=== PATIENT | female | born 2000 | race African-American/Black ===

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

== ENCOUNTER 2019-01-11 10:07 | Emergency (ER) | payer SELFPAY ==
[~2019-01-11] VITALS: Ht 154.9 cm; Wt 51.8 kg
[2019-01-11 10:11] VITALS: TEMP 98.9
[2019-01-11 10:51] LABS: BASO % 0.2 % (0.0-2.0); EOS # 0.1 (0.0-0.7); EOS % 0.6 % (0-4.0); GRAN # 7.4 (1.4-6.5); GRAN % 76.1 % (42.2-75.2); HEMOGLOBIN 12.3 g/dl (12.0-15.0); LYMPH # 1.6 (1.2-3.4); LYMPH % 16.4 % (20.0-51.0); MEAN CELL VOLUME 85 fl (80.0-95.0); MEAN CORPUSCULAR HEMOGLOBIN 29 pg (26.0-32.0); MEAN CORPUSCULAR HGB CONC 34 g/dl (33.0-37.0); MEAN PLATELET VOLUME 10.1 fl (7.4-10.4); MONO # 0.6 (0.1-0.6); MONO % 6.2 % (1.7-9.3); PLATELET COUNT 289 K/mm3 (130-400); RED BLOOD COUNT 4.31 M/mm3 (4.10-5.30); REDCELL DISTRIBUTION WIDTH-CV 12.9 % (11.5-14.5)
[2019-01-11 10:53] LABS: HEMATOCRIT 36.7 % (35.0-45.0)
[2019-01-11 11:53] LABS: COLLECTION METHOD CLEAN CATCH
[2019-01-11 12:21] LABS: AMORPHOUS CRYSTAL Present /uL; MUCOUS Present /lpf; PH 7 (5-8); SQUAMOUS EPITHELIAL 0-2 /hpf; URINE APPEARANCE Hazy; URINE BACTERIA None Seen /hpf; URINE BILIRUBIN Negative (NEGATIVE); URINE BLOOD Negative (NEGATIVE); URINE COLOR Yellow; URINE GLUCOSE Negative (NEGATIVE); URINE KETONE Negative (NEGATIVE); URINE LEUKOCYTE ESTERASE Negative (NEGATIVE); URINE NITRATE Negative (NEGATIVE); URINE PROTEIN(semi-quant) Negative (NEGATIVE); URINE RBC 0-2 /hpf; URINE UROBILINOGEN Negative (NEGATIVE)
[2019-01-11] MEDS ORDERED: FLAGYL500 MG PO (13:19)
[2019-01-11 13:46] VITALS: BP 112/69; PULSE 83
== END 2019-01-11 13:47 | disposition home or self-care (01) ==
LOC: COL.ER 10:07
PROVIDERS: Nurse Practitioner Primary Care
DX: O23.592 Infection of other part of genital tract in pregnancy, second trimester (principal); O46.92 Antepartum hemorrhage, unspecified, second trimester; B96.89 Other specified bacterial agents as the cause of diseases classified elsewhere; Z3A.15 15 weeks gestation of pregnancy
CPT/HCPCS: J2791

== ENCOUNTER 2020-06-25 05:57 | Emergency (ER) | payer SELFPAY ==
[~2020-06-25] VITALS: Ht 157.5 cm; Wt 54.5 kg
[~2020-06-25 05:57] MED LIST: FLAGYL500 MG PO
[2020-06-25 06:06] VITALS: BP 116/80; TEMP 99.2
[2020-06-25 06:57] LABS: COLLECTION METHOD CLEAN CATCH
[2020-06-25] MEDS ORDERED: DOXYCYCLINE 10100 MG PO (06:57)
[2020-06-25 07:09] LABS: MUCOUS Present /lpf; PH 7 (5-8); URINE APPEARANCE Cloudy; URINE BACTERIA None Seen /hpf; URINE BILIRUBIN Negative (NEGATIVE); URINE BLOOD 1+ (NEGATIVE); URINE COLOR Yellow; URINE GLUCOSE Negative (NEGATIVE); URINE KETONE Negative (NEGATIVE); URINE LEUKOCYTE ESTERASE 2+ (NEGATIVE); URINE NITRATE Negative (NEGATIVE); URINE PROTEIN(semi-quant) 1+ (NEGATIVE)
[2020-06-25 07:14] LABS: BASO % 0.3 % (0.0-2.0); EOS # 0.2 (0.0-0.7); EOS % 1.3 % (0-4.0); GRAN # 11.3 (1.4-6.5); GRAN % 79.6 % (42.2-75.2); HEMATOCRIT 36.5 % (37.0-47.0); HEMOGLOBIN 11.6 g/dl (12.5-16.0); LYMPH # 1.6 (1.2-3.4); LYMPH % 10.9 % (20.0-51.0); MEAN CELL VOLUME 87 fl (80.0-100.0); MEAN CORPUSCULAR HEMOGLOBIN 28 pg (27.0-31.0); MEAN CORPUSCULAR HGB CONC 32 g/dl (33.0-37.0); MONO % 7.2 % (1.7-9.3); PLATELET COUNT 486 K/mm3 (130-400); RED BLOOD COUNT 4.21 M/mm3 (4.10-5.30); REDCELL DISTRIBUTION WIDTH-CV 13.2 % (11.5-14.5)
[2020-06-25 07:36] LABS: ALBUMIN 4.1 gm/dL (3.5-5.0); BILIRUBIN,TOTAL 0.3 mg/dL (0.0-1.0); C-REACTIVE PROTEIN 8.5 mg/dL (0.0-0.9); CALCIUM 9.5 mg/dL (8.4-10.2); CREATININE, serum 0.67 (0.52-1.25); POTASSIUM 3.7 mmol/L (3.4-5.0); TOTAL PROTEIN 8.1 gm/dL (6.4-8.2)
[2020-06-25] MEDS ORDERED: FLAGYL500 MG PO (08:29)
[2020-06-25] MEDS ORDERED: ZOFRAN 4MG T4 MG/TAB PO (08:35)
[2020-06-25 10:28] VITALS: PULSE 69
== END 2020-06-25 09:10 | disposition home or self-care (01) ==
LOC: COL.ER 05:57
PROVIDERS: Emergency Medicine
DX: N73.9 Female pelvic inflammatory disease, unspecified (principal); Z32.02 Encounter for pregnancy test, result negative; Z79.2 Long term (current) use of antibiotics
CPT/HCPCS: J0696; J1885; J2270; J2405; J7030